=== PATIENT | male | born 1995 | race Caucasian/White ===

== ENCOUNTER 2016-11-13 13:20 | Emergency (ER) | payer BC ==
[~2016-11-13] VITALS: Ht 182.9 cm; Wt 86.3 kg
[~2016-11-13 13:20] MED LIST: DOCU10ELUD PO; NO HISTORICAL MEDS; POLYBTL PO; VICO5TA PO
[2016-11-13] MEDS ORDERED: RANI300T PO (13:32)
[2016-11-13] MEDS ORDERED: PRED20TA PO (14:29)
[2016-11-13] MEDS ORDERED: CLAR1TAB2 PO (14:29)
[2016-11-13 15:06] VITALS: BP 121/70
== END 2016-11-13 15:06 | disposition home or self-care (01) ==
LOC: M ED 13:20
DX: L23.7 Allergic contact dermatitis due to plants, except food (principal); Z87.891 Personal history of nicotine dependence; Z79.899 Other long term (current) drug therapy; Z88.2 Allergy status to sulfonamides